=== PATIENT | female | born 1985 | race American Indian/Alaskan Native ===

== ENCOUNTER 2019-03-06 16:39 | Emergency (ER) | payer SELFPAY ==
--- NOTE | 2019-03-06 17:22 | Event Note ---
ED Screening Note Date of service: 03/06/19 Time: 17:20 ED Screening Note: This is a 33 y.o. F. that presents to the ER with abdominal pain, n/v, and SOB for 2 days. This initial assessment/diagnostic orders/clinical plan/treatment(s) is/are subject to change based on patients health status, clinical progression and re- assessment by fellow clinical providers in the ED. Further treatment and workup at subsequent clinical providers discretion. Patient/guardian urged not to elope from the ED as their condition may be serious if not clinically assessed and managed. Initial orders include: Labs and CT of abdomen
[2019-03-06 17:58] LABS: Basophils % (Auto) 0.4 % (0.0-1.8); Eosinophils # (Auto) 0.1 K/mm3 (0.0-0.4); Eosinophils % (Auto) 0.6 % (0.0-4.3); Hematocrit 39.7 % (30.3-42.9); Hemoglobin 13.2 gm/dl (10.1-14.3); Lymphocytes # (Auto) 2.4 K/mm3 (1.2-5.4); Lymphocytes % (Auto) 22.1 % (13.4-35.0); Mean Corpuscular HGB Conc 33 % (30-34); Mean Corpuscular Volume 91 fl (79-97); Monocytes # (Auto) 0.5 K/mm3 (0.0-0.8); Monocytes % (Auto) 4.6 % (0.0-7.3); Platelet Count 325 K/mm3 (140-440); Red Blood Count 4.38 M/mm3 (3.65-5.03); Red Cell Distribution Width 13.4 % (13.2-15.2)
[2019-03-06 18:23] LABS: Alanine Aminotransferase 13 units/L (7-56); Albumin 4.3 g/dL (3.9-5); BUN/Creatinine Ratio 10; Blood Urea Nitrogen 5 mg/dL (7-17); Calcium 9.2 mg/dL (8.4-10.2); Hemolysis Index 20
[2019-03-06] MEDS ORDERED: SODIUM CHLORIDE 0.9% 1000 ML 1,000 ML IV ONE (21:25)
[2019-03-06] MEDS ORDERED: ONDANSETRON 4 MG/2 ML INJ IV ONE (21:25)
[2019-03-06] MEDS ORDERED: DICYCLOMINE 20 MG/2 ML INJ IM ONE (21:27)
--- NOTE | 2019-03-06 22:40 | Ultrasound Report ---
OB ultrasound FINDINGS: Gestational sac is seen within the endometrial cavity with sac measurements corresponding t o an MA of 5 weeks 6 days for an EDC of 10/31/2019. No pole or yolk sac is seen currently howeve r. Left ovary measures 2.5 x 1.5 x 1.1 cm and appears normal. The right ovary measures 2.8 x 2.4 x 2. 4 cm and contains a 1.8 x 1.3 x 1.1 cm hypoechoic area which is nonspecific. No ectopic see n however. IMPRESSION: Probable early IUP. Follow-up ultrasound or correlation with hCG levels may be of benefit . Signer Name: Erik Ahmadi MD Signed: 03/06/2019 10:35 PM Workstation Name: [id number]
--- NOTE | 2019-03-07 01:26 | Emergency Department Report ---
ED Abdominal Pain HPI - General Chief Complaint: Abdominal Pain Stated Complaint: PAIN/VOMITING Time Seen by Provider: 03/06/19 17:20 Source: patient Mode of arrival: Wheelchair Limitations: No Limitations - History of Present Illness Initial Comments: Patient is a A0 33-year-old [place] female who is approximately 5 gestation who presents to the ED with a complaint of acute onset persistent severe diffuse lower abdominal pain with nausea and vomiting for the last 2 days. Patient denies vaginal bleeding, dysuria, urinary frequency and urgency, diarrhea, low back pain, fever, chills, cough, chest pain, shortness of breath, vaginal discharge, dizziness, sore throat or cough. MD Complaint: abdominal pain, other (NAUSEA AND VOMITING) -: Sudden, days(s) (2) Location: suprapubic Radiation: suprapubic Migration to: no migration Severity scale (0 -10): 7 Quality: aching, sharp Consistency: constant Improves With: nothing Worsens With: nothing Associated Symptoms: denies other symptoms, nausea, vomiting, anorexia. denies: diarrhea, fever, chills, constipation, dysuria, hematemesis, hematochezia, melena, hematuria, syncope - Related Data LMP Date: 01/20/19 Previous Rx's Medication Instructions Recorded Last Taken Type Acetaminophen [Tylenol] 500 mg PO Q6HR PRN #30 tablet 03/07/19 Unknown Rx Promethazine [Phenergan] 25 mg PO Q6HR PRN #30 tab 03/07/19 Unknown Rx Allergies Allergy/AdvReac Type Severity Reaction Status Date / Time No Known Allergies Allergy Unverified 03/07/19 01:58 ED Review of Systems ROS: Stated complaint: PAIN/VOMITING Other details as noted in HPI Constitutional: denies: chills, fever Eyes: denies: eye pain, eye discharge, vision change ENT: denies: ear pain, throat pain Respiratory: denies: cough, shortness of breath, wheezing Cardiovascular: denies: chest pain, palpitations Endocrine: no symptoms reported Gastrointestinal: abdominal pain, nausea, vomiting. denies: diarrhea Genitourinary: other. denies: urgency, dysuria, discharge Musculoskeletal: denies: back pain, joint swelling, arthralgia Skin: denies: rash, lesions Neurological: denies: headache, weakness, paresthesias Psychiatric: denies: anxiety, depression Hematological/Lymphatic: denies: easy bleeding, easy bruising ED Past Medical Hx - Past Medical History Previous Medical History?: No - Surgical History Past Surgical History?: No - Social History Smoking Status: Current Every Day Smoker Substance Use Type: None - Medications Home Medications: Home Medications Medication Instructions Recorded Confirmed Last Taken Type Acetaminophen [Tylenol] 500 mg PO Q6HR PRN #30 tablet 03/07/19 Unknown Rx Promethazine [Phenergan] 25 mg PO Q6HR PRN #30 tab 03/07/19 Unknown Rx ED Physical Exam - General Limitations: No Limitations General appearance: alert, in no apparent distress - Head Head exam: Present: atraumatic, normocephalic, normal inspection - Eye Eye exam: Present: normal appearance, PERRL, EOMI Pupils: Present: normal accommodation - ENT ENT exam: Present: normal exam, normal orophraynx, mucous membranes moist, TM's normal bilaterally, normal external ear exam - Neck Neck exam: Present: normal inspection, full ROM. Absent: tenderness - Respiratory Respiratory exam: Present: normal lung sounds bilaterally. Absent: respiratory distress, wheezes, rales, rhonchi, chest wall tenderness, decreased breath sounds - Cardiovascular Cardiovascular Exam: Present: regular rate, normal rhythm, normal heart sounds. Absent: systolic murmur, diastolic murmur, rubs, gallop - GI/Abdominal GI/Abdominal exam: Present: soft, tenderness (palpable diffuse lower abdominal tenderness, no guarding or rebound), normal bowel sounds. Absent: guarding, rebound, hyperactive bowel sounds, hypoactive bowel sounds, mass - Bi-manual exam: Present: other (Pelvic exam deferred, patient declined) - Extremities Exam Extremities exam: Present: normal inspection, full ROM, normal capillary refill - Back Exam Back exam: Present: normal inspection, full ROM. Absent: tenderness, muscle spasm, paraspinal tenderness - Neurological Exam Neurological exam: Present: alert, oriented X3, CN II-XII intact, normal gait, reflexes normal - Psychiatric Psychiatric exam: Present: normal affect, normal mood - Skin Skin exam: Present: warm, dry, intact, normal color. Absent: rash ED Course Vital Signs 03/06/19 17:20 Temperature 98.4 F Pulse Rate 84 Respiratory 18 Rate Blood Pressure 125/79 O2 Sat by Pulse 96 Oximetry ED Medical Decision Making - Lab Data Result diagrams: 03/06/19 17:46 03/06/19 17:46 - Radiology Data Radiology results: report reviewed, image reviewed Findings [facility] [address] [place] [address] Ultrasound Report Signed Patient: LANE PONCE MR#: [id number] 58 : 1985 Acct:[id number] Age/Sex: 33 / F ADM Date: 03/06/19 Loc: ED Attending Dr: Ordering Physician: RUTHY MONET Date of Service: 03/06/19 Procedure(s): US OB <= 14 weeks fetus Accession Number(s): [id number] cc: RUTHY MONET OB ultrasound FINDINGS: Gestational sac is seen within the endometrial cavity with sac measurements corresponding to an MA of 5 weeks 6 days for an EDC of 10/31/2019. No pole or yolk sac is seen currently however. Left ovary measures 2.5 x 1.5 x 1.1 cm and appears normal. The right ovary measures 2.8 x 2.4 x 2.4 cm and contains a 1.8 x 1.3 x 1.1 cm hypoechoic area which is nonspecific. No ectopic seen however. IMPRESSION: Probable early IUP. Follow-up ultrasound or correlation with hCG levels may be of benefit. Signer Name: Erik Ahmadi MD Signed: 03/06/2019 10:35 PM Workstation Name: [id number] Transcribed By: Dictated By: Erik Ahmadi MD Electronically Authenticated By: Erik Ahmadi MD Signed Date/Time: 03/06/19 2235 - Medical Decision Making This is a A0 33-year-old AA female who was approximately 5 weeks gestation and presented to the ED with diffuse low abdominal pain with nausea and vomiting for 2 days. In the ED, patient is alert and oriented 3 and is not in distress vital signs are stable. Patient was treated for nausea and vomiting and also given pain medications. Patient received normal saline 1 L IV bolus 1. On reevaluation, patient's pain and nausea and vomiting resolved, patient was able to drink oral fluids in the ED with no difficulty. Lab test results were reviewed and all nonactionable except urinalysis that was never tested because the patient refused to give urine for urinalysis. Transvaginal ultrasound shows gestational sac within the endometrial cavity with sac measurements corresponding to an MA of 5 weeks 6 days for an EDC of 10/31/2019. No pole or yolk sac is seen currently however. Left ovary measures 2.5 x 1.5 x 1.1 cm and appears normal. The right ovary measures 2.8 x 2.4 x 2.4 cm and contains a 1.8 x 1.3 x 1.1 cm hypoechoic area which is nonspecific. No ectopic seen however. After 6 hours of being in the ED and patient refusing to cooperate on giving urine for urinalysis, patient finally gave urine for urinalysis after being told that she was being discharged home and that she had to sign out AMA. Urinalysis was unremarkable. Patient was thereafter discharged out of the ED on antiemetics and pain medications. Patient was advised to f ollow-up with [facility] physician in 7-10 days for reevaluation or return to the ED immediately if symptoms get worse. - Differential Diagnosis Ectopic ; UTI; Ovarian cyst; PID; Dehydration Critical care attestation.: If time is entered above; I have spent that time in minutes in the direct care of this critically ill patient, excluding procedure time. ED Disposition Clinical Impression: Nausea and vomiting during Abdominal pain in Qualifiers: Trimester: first trimester Qualified Code(s): O26.891 - Other specified related conditions, first trimester Disposition: TO HOME OR SELFCARE Is pt being admited?: No Does the pt Need Aspirin: No Condition: Stable Instructions: Acute Nausea and Vomiting (ED), Abdominal Pain (ED) Additional Instructions: Maintain clear liquid diet for 12-24 hours, maintain complete pelvic rest, take medications with food, drink plenty of fluids and follow-up with your [facility]IST[facility] physician in 7-10 days for reevaluation. Return to the ED immediately if symptoms worse. Prescriptions: Acetaminophen [Tylenol] 500 mg PO Q6HR PRN #30 tablet PRN Reason: Pain , Severe (7-10) Promethazine [Phenergan] 25 mg PO Q6HR PRN #30 tab PRN Reason: Nausea Referrals: AMIE RENEE MD [Staff Physician] - 7-10 days Forms: AMA Form Time of Disposition: 01:28 Print Language: UKRAINIAN
[2019-03-07 02:12] LABS: Amorphous Crystals,Urine 1+; Bacteria,Urine 1+ /HPF (Negative); Bilirubin,Urine NEG (Negative); Blood,Urine NEG (Negative); Color,Urine Yellow (Yellow); Mucus,Urine FEW /HPF
[2019-03-07 02:19] LABS: RBC,Urine < 1.0 /HPF (0.0-6.0)
[2019-03-07] MEDS ORDERED: ACETAMINOPHEN 500 MG TAB ONE (03:12)
[2019-03-07] MEDS ORDERED: ACETAMINOPHEN 500 MG TAB PO ONE (03:13)
[2019-03-07 03:14] VITALS: BP 141/82
== END 2019-03-07 03:15 | disposition home or self-care (01) ==
LOC: ED 16:39
DX: O26.891 Other specified pregnancy related conditions, first trimester (principal); R11.0 Nausea; O21.8 Other vomiting complicating pregnancy; O99.331 Smoking (tobacco) complicating pregnancy, first trimester; Z3A.01 Less than 8 weeks gestation of pregnancy
CPT/HCPCS: 36415; 76801; 80053; 81001; 83690; 84702; 84703; 85025; 96361; 96372; 96374; 99284; J0500; J2405; J7030